=== PATIENT | female | born 2000 | race Caucasian/White ===

== ENCOUNTER 2019-04-28 10:25 | Outpatient (CLI) | payer MEDICAID ==
[~2019-04-28] VITALS: Ht 157.5 cm; Wt 79.7 kg
[2019-04-28 10:29] VITALS: Ht 157.5 cm; Wt 79.7 kg
[2019-04-28 10:41] VITALS: BP 114/64; PULSE 77; RESP 18
--- NOTE | 2019-04-28 11:26 | TRIAGE ---
OB Triage Datetime Report Generated by CPN: 04/28/2019 11:26 Datetime: 04/28/2019 10:38 Assessment Type: Triage Maternal Assessment Level of Consciousness: Keenly Alert, Responsive DTR's/Clonus: DTRs 2+; No Clonus Headache: Denies Blurred Vision: No Respiratory Effort: Unlabored; Regular Rhythm; Equal Expansion Breath Sounds, Left: Clear and Equal Breath Sounds, Right: Clear and Equal Nausea/Vomiting: Denies RUQ Epigastric Pain: Denies Lower Extremities Edema: Bilateral Lower Extremities Degree: 1+ Upper Extremities Edema: None Degree: None Facial Edema: None Fall Risk Assessment History of Falling: (0) No Secondary Diagnosis: (0) No Ambulatory Aid: (0) Bedrest/Nurse Assist IV Therapy: (0) No Gait: (0) Normal/Bedrest/Immobile Mental Status: (0) Oriented to Own Ability Fall Score: 0 Fall Risk Score Definition: No Risk: No action required Datetime: 04/28/2019 10:37 Time of Arrival: 04/28/2019 10:20 EGA: 36.3 Arrived By: Ambulatory Arrived From: Home Chief Complaint: pt. sent for EVAL OF ITCHING Movement: Present Contractions: Denies/Absent Rupture of Membranes: Denies Vaginal Bleeding: None Vaginal Discharge: Denies Recent Sexual Intercouse: Denies Abdominal Trauma: Not Applicable Patient Complaints: None Time Provider Notified: 04/28/2019 11:13 Provider Notified: HADADIAN Initial Plan: NST/BPP Datetime: 04/28/2019 10:36 Labor Evaluation Monitor Mode: External Heart Rate Monitor Mode: External US
--- NOTE | 2019-04-28 13:26 | PN ---
Triage Information Date/Time Reason for visit: Antepartum testing Weeks of Gestation 36 weeks and 3 days /Para 1 Diabetes: none Hypertention: none Objective Vital Signs Date Temp Pulse Resp B/P (MAP) Pulse Ox O2 O2 Flow FiO2 Time Delivery Rate 04/28/19 97.5 77 18 114/64 Room Air 10:41 (81) Heart Rate: 130's Contractions: None Results/Medications Imaging Results There is a single live intrauterine gestation. Cardiac activity is present with 137 beats per minute. There is a vertex presentation. The placenta is posterior. There is no evidence of placental abruption. DEDRA = 13.5 cm. Biophysical profile: movement 2/2 tone 2/2. breathing 2/2 DEDRA 2/2 Total 06/24 RPTAT: AA . IMPRESSION: Normal biophysical profile. Disposition: Discharge Assessment/Plan 18 years old 1 with single intrauterine at 36 weeks and 3 days complaining of generalized itching. She denies itching on palms and soles. She states good movement. She denies nausea, vomiting, shortness of breath, chest pain, headache, visual changes, vaginal bleeding or LOF. -FHR: No sign of metabolic acidosis- Category I. Initially she had one variable deceleration for 10 seconds. Prolonged monitoring for more than 2 hours with category 1 -Contractions: None -Total bile acid ordered yesterday result is pending, CMP is within normal limits. -Ultrasound performed: Normal DEDRA, BPP 8 out of 8 -Scheduled for repeat NST in 3 days -Symptoms and sign of labor, preeclampsia, kick count discussed with patient, she voiced understanding. All of her questions answered. -Patient was discharged home in stable condition with the appropriate discharge instructions provided. I would like patient to have close follow-up with her primary physician or outpatient clinic in 1-2 days or return to triage for worsening symptoms or any other urgent concerns. SABRINA CALHOUN Apr 28, 2019 13:26
== END 2019-04-28 13:05 | disposition home or self-care (01) ==
LOC: OBT 10:25 → L-D 10:26 → OBT 13:05
PROVIDERS: ATTEND Obstetrics & Gynecology
DX: O26.893 Other specified pregnancy related conditions, third trimester (principal); L29.9 Pruritus, unspecified; Z3A.36 36 weeks gestation of pregnancy
CPT/HCPCS: 76818; Z7500; G0463

== ENCOUNTER 2019-05-02 17:50 | Inpatient (IN) | payer MEDICAID ==
[~2019-05-02] VITALS: Ht 157.5 cm; Wt 80.4 kg
[2019-05-02 18:17] VITALS: Ht 157.5 cm; Wt 80.4 kg
[2019-05-02 18:18] VITALS: BP 123/79; PULSE 65
[2019-05-02] MEDS ORDERED: PNV11TAB PO (18:19)
--- NOTE | 2019-05-02 18:30 | HP ---
Date/Time of Note Date/Time of Note DATE: 05/02/19 TIME: 18:28 OB - History Hx of Present Free Text/Dictation 37+wks suspected cholestasis of : 1 Para: 0 Care: Good Care Ultrasounds: Normal mid trimester US Obstetrical Complications: None Medical Complications: None Past Family/Social History * Past Medical, Surgical, Family and Obstetric Histories reviewed from chart. OB Admission Exam Vital Signs Vital Signs Vital Signs Date Temp Pulse Resp B/P (MAP) Pulse Ox O2 O2 Flow FiO2 Time Delivery Rate 05/02/19 98.1 65 123/79 18:18 (94) Physical Exam Abdomen: WNL Extremities: Normal Cervical Dilatation: Fingertip Effacement: 50% Station: -1 Membranes: Intact Heart Rate: 140's Accelerations: Accelerations Present Decelerations: No Decelerations Varibility: Moderate Contractions on Admission: None OB Assessment/Plan Reason for admission: observation Other Assessment: PMH deneis PSH Denies Plan: Expectant Management Other plan: Observation PIH panel F/u on Bile acids results from the clinic tomorrow morning and consider delivery if she is a case of Cholestasis of JAMIA ORTEGA M.D. May 02, 2019 18:30
[2019-05-03] MEDS ORDERED: URSODIOL 300 MG CAP PO ONE (00:30)
[2019-05-03] MEDS ORDERED: DIPHENHYDRAMINE 25 MG CAP PO ONE (00:30)
[2019-05-03] MEDS: URSODIOL 300 MG CAP PO SCH ×3 (09:00→20:31)
[2019-05-03] MEDS: DIPHENHYDRAMINE 25 MG CAP PO SCH (20:31)
[2019-05-04] MEDS ORDERED: MISOPROSTOL 200 MCG TAB PR PRN (02:00)
[2019-05-04] MEDS ORDERED: IBUPROFEN 600 MG TAB PO PRN (02:00)
[2019-05-04] MEDS ORDERED: DIPHENHYDRAMINE 50 MG INJ IV PRN (02:00)
[2019-05-04] MEDS ORDERED: OXYTOCIN 30 UNITS/LR 500 ML IV PRN (02:00)
[2019-05-04] MEDS ORDERED: OXYTOCIN 30 UNITS/LR 500 ML IV SCH ×2 (02:00)
[2019-05-04] MEDS ORDERED: LIDOCAINE 1% (MPF) 30 ML INJ INJ PRN (02:00)
[2019-05-04] MEDS ORDERED: METHYLERGONOVINE 0.2 MG INJ IM PRN (02:00)
[2019-05-04] MEDS ORDERED: BUTORPHANOL 2 MG INJ IV PRN (02:00)
[2019-05-04] MEDS ORDERED: CARBOPROST 250 MCG INJ IM PRN (02:00)
[2019-05-04] MEDS: LACTATED RINGER'S 1,000 ML IV SCH ×3 (02:33→17:28)
[2019-05-04] MEDS: MISOPROSTOL 50 MCG CAPSULE PO SCH ×4 (02:51→20:54)
[2019-05-04] MEDS ORDERED: MISOPROSTOL 50 MCG CAPSULE PO SCH (05:00)
[2019-05-04] MEDS ORDERED: AMPICILLIN 2 GM/NS (PMX) 100 ML IV ONE (07:30)
[2019-05-04] MEDS ORDERED: HYDROCORTISONE 20 MG TAB PO SCH (09:00)
[2019-05-04] MEDS: URSODIOL 300 MG CAP PO SCH ×3 (10:59→20:54)
[2019-05-04] MEDS: hydrOXYzine HCL 10 MG TAB PO SCH ×3 (13:26→21:00)
[2019-05-04] MEDS: AMPICILLIN 1 GM/NS (PMX) 50 ML IV SCH ×3 (13:26→21:30)
[2019-05-04] MEDS: DIPHENHYDRAMINE 25 MG CAP PO SCH (20:54)
[2019-05-04] MEDS ORDERED: MINERAL OIL LIGHT 10 ML VIAL TOP PRN (23:00)
[2019-05-05] MEDS: AMPICILLIN 1 GM/NS (PMX) 50 ML IV SCH ×6 (01:34→20:54)
[2019-05-05] MEDS: MISOPROSTOL 50 MCG CAPSULE PO PRN ×2 (01:34→05:44)
[2019-05-05] MEDS: LACTATED RINGER'S 1,000 ML IV SCH ×2 (01:36→12:45)
[2019-05-05] MEDS: hydrOXYzine HCL 10 MG TAB PO SCH ×3 (09:06→20:46)
[2019-05-05] MEDS: URSODIOL 300 MG CAP PO SCH ×3 (09:06→20:46)
[2019-05-05] MEDS ORDERED: OXYTOCIN 30 UNITS/LR 500 ML IV SCH (10:30)
[2019-05-05] MEDS: LACTATED RINGER'S 1,000 ML IV PRN ×2 (20:14→23:54)
[2019-05-05] MEDS: DIPHENHYDRAMINE 25 MG CAP PO SCH (21:00)
--- NOTE | 2019-05-06 00:02 | PREAC ---
Date/Time of Note Date/Time of Note DATE: 05/06/19 TIME: 00:01 Anesthesia Eval and Record Evaluation Time Pre-Procedure Interview DATE: 05/06/19 TIME: 00:01 Age 18 Sex female NPO: 8 hrs Preoperative diagnosis iup at 37 weeks Planned procedure labor epidural Past Medical History Past Medical History: Includes Heme: Anemia Surgery & Anesthesia Issues No known issue Meds Anticoagulation: No Beta Casey within 24 hr: No Reason Beta Casey not given: Pt. not on B-Casey Reported Medications [id number] ( 19) 1 Each Tablet, 1 TAB PO DAILY, TAB 05/02/19 Current Medications Ursodiol (Actigall) 300 mg TID PO Last administered on 05/05/19at 20:46; Admin Dose 300 MG; Start 05/03/19 at 09:00 Diphenhydramine HCl (Benadryl) 25 mg HS PO Last administered on 05/04/19at 20:54; Admin Dose 25 MG; Start 05/03/19 at 21:00 Lactated Ringer's 1,000 ml @ 125 mls/hr Q8H IV Last administered on 05/05/19at 12:45; Admin Dose 125 MLS/HR; Start 05/04/19 at 01:43 Butorphanol Tartrate (Stadol) 2 mg Q2H PRN IV .PAIN SCALE 6-10 Last administered on 05/05/19at 20:48; Admin Dose 2 MG; Start 05/04/19 at 02:00 Lidocaine (Xylocaine 1% (Mpf)) 30 ml ONCE PRN INJ .EPISIOTOMY; Start 05/04/19 at 02:00 Oxytocin/Lactated Ringer's 500 ml @ 500 mls/hr ONCE POST IV ; Start 05/04/19 at 02:00 Oxytocin/Lactated Ringer's 500 ml @ 125 mls/hr POST IV ; Start 05/04/19 at 02:00 Ibuprofen (Motrin) 600 mg ONCE PRN PO .PAIN 1-5; Start 05/04/19 at 02:00 Oxytocin/Lactated Ringer's 500 ml @ 0 mls/hr ONCE PRN IV .VAGINAL BLEEDING; Start 05/04/19 at 02:00 Methylergonovine Maleate (Methergine) 0.2 mg ONCE PRN IM .VAGINAL BLEEDING; Start 05/04/19 at 02:00 Carboprost Tromethamine (Hemabate) 250 mcg ONCE PRN IM .VAGINAL BLEEDING; Start 05/04/19 at 02:00 Misoprostol (Cytotec) 1,000 mcg ONCE PRN ND .VAGINAL BLEEDING; Start 05/04/19 at 02:00 Diphenhydramine HCl (Benadryl) 50 mg Q6H PRN IV ITCHING Last administered on 05/04/19at 02:34; Admin Dose 50 MG; Start 05/04/19 at 02:00 Ampicillin 50 ml @ 100 mls/hr Q4H IV Last administered on 05/05/19at 20:54; Admin Dose 100 MLS/HR; Start 05/04/19 at 11:30 Hydroxyzine HCl (Atarax) 10 mg TID PO Last administered on 05/05/19at 20:46; Admin Dose 10 MG; Start 05/04/19 at 10:00 Lactated Ringer's 1,000 ml @ 2,000 mls/hr Q30M PRN IV .ANESTHESIA Last administered on 05/05/19at 23:54; Admin Dose 2,000 MLS/HR; Start 05/04/19 at 22:56 Oxytocin/Lactated Ringer's 500 ml @ 0 mls/hr Q0M IV Last administered on 05/05/19at 10:45; Admin Dose 0 MLS/HR; Start 05/05/19 at 10:30 Meds reviewed: Yes Allergies Coded Allergies: No Known Allergy (Unverified , 04/28/19) Allergies Reviewed: Yes Labs/Studies Labs Reviewed: Reviewed by anesthesiologist Result Diagram: 05/04/19 0233 05/04/19 0032 test: Positive Pre-procedure Exam Last vitals Vital Signs Date Temp Pulse Resp B/P (MAP) Pulse Ox O2 O2 Flow FiO2 Time Delivery Rate 05/02/19 98.1 65 123/79 18:18 (94) Airway: Adequate mouth opening, Adequate thyromental dist Mallampati: Mallampati II Teeth: Normal Lung: Normal Heart: Normal ASA Physical Status ASA physical status: 2 Emergency: None Planned Anesthetic Neuraxial: Epidural Planned Pain Management Parenteral pain med Pre-operative Attestations Prior to commencing anesthesia and surgery, the patient was re-evaluated, there was verification of: *The patient's identity *The results of appropriate recent lab work and preoperative vital signs *The above evaluation not changing prior to induction *Anesthetic plan, risk benefits, alternative and complications discussed with patient/family; questions answered; patient/family understands, accepts and wishes to proceed. ROGER TATE May 06, 2019 00:02
[2019-05-06] MEDS ORDERED: FENTAnyl 2MCG/ML-ROPIV 0.2% 100 ML ONE (00:09)
[2019-05-06] MEDS ORDERED: FENTAnyl 2MCG/ML-ROPIV 0.2% 100 ML BAG EPI SCH (00:30)
[2019-05-06] MEDS ORDERED: NALOXONE (0.4 MG/ML) INJ IV PRN (00:30)
[2019-05-06] MEDS ORDERED: DIPHENHYDRAMINE 50 MG INJ IV PRN (00:30)
[2019-05-06] MEDS ORDERED: ONDANSETRON 4 MG INJ IV PRN (00:30)
[2019-05-06] MEDS: AMPICILLIN 1 GM/NS (PMX) 50 ML IV SCH ×2 (01:16→06:02)
[2019-05-06] MEDS ORDERED: MINERAL OIL LIGHT 10 ML VIAL TOP PRN (06:30)
[2019-05-06] MEDS ORDERED: OXYTOCIN 30 UNITS/LR 500 ML IV SCH (11:59)
[2019-05-06 12:00] VITALS: BP 137/82; PULSE 70; RESP 20
[2019-05-06] MEDS ORDERED: LANOLIN HPA 1 PKT TOP PRN (12:00)
[2019-05-06] MEDS ORDERED: WITCH HAZEL/GLYCERIN PAD PR PRN (12:00)
[2019-05-06] MEDS ORDERED: METHYLERGONOVINE 0.2 MG INJ IM PRN (12:00)
[2019-05-06] MEDS ORDERED: OXYTOCIN 30 UNITS/LR 500 ML IV PRN (12:00)
[2019-05-06] MEDS ORDERED: HYDROCODONE/APAP (5/325) TAB PO PRN ×2 (12:00)
[2019-05-06] MEDS ORDERED: BENZOCAINE 20% 56 ML SPRAY TOP PRN (12:00)
[2019-05-06] MEDS ORDERED: MISOPROSTOL 200 MCG TAB PR PRN (12:00)
[2019-05-06] MEDS ORDERED: NACL 0.9% 3 ML SYG IV SCH (12:00)
[2019-05-06] MEDS ORDERED: CARBOPROST 250 MCG INJ IM PRN (12:00)
[2019-05-06] MEDS ORDERED: METHYLERGONOVINE 0.2 MG TAB PO PRN (12:00)
[2019-05-06] MEDS ORDERED: DIBUCAINE 1% 30 GM OINT TOP PRN (12:00)
[2019-05-06 13:00] VITALS: BP 124/80; PULSE 74; RESP 18
[2019-05-06] MEDS: IBUPROFEN 600 MG TAB PO SCH ×2 (13:24→18:11)
[2019-05-06 14:00] VITALS: BP 122/82; PULSE 76; RESP 16
--- NOTE | 2019-05-06 14:59 | LDN ---
Date/Time of Note Date/Time of Note DATE: 05/06/19 TIME: 14:56 Delivery Summary 05/06/2019 Placenta Delivered: Spontaneously Meconium: none Episiotomy: No Indication for episiotomy N/A Perineal laceration: 1 Laceration repair: first degree perineal laceration noted , repaired using 3-0 chromic Anesthesia type: Epidural Estimated blood loss: 300 Sponge & Needle done & correct: Yes All needle counts correct: Yes Any foreign bodies felt in the: No Infant Delivery Information Sex Sex: male Apgars 1 Minute: 8 5 Minute: 9 Suctioning Nose & mouth suctioned at yan: Yes Delee suction performed: Yes Umbilical Cord Umbilical cord with: 3 Vessels Cord presentations: no nuchal cord Cord Blood was obtained: Yes SHARRI ESTRADA MD May 06, 2019 14:59
[2019-05-06 15:30] VITALS: BP 117/66; PULSE 87; RESP 16
[2019-05-06 20:15] VITALS: BP 108/60; PULSE 74; RESP 20
[2019-05-07] VITALS: BP 121/70; PULSE 73; RESP 18
[2019-05-07] MEDS: IBUPROFEN 600 MG TAB PO SCH ×5 (00:01→23:45)
[2019-05-07 04:00] VITALS: BP 119/70; PULSE 75; RESP 18
[2019-05-07 08:00] VITALS: BP 105/66; PULSE 64; RESP 16
[2019-05-07 08:30] VITALS: BP 105/66; PULSE 64; RESP 18
--- NOTE | 2019-05-07 11:26 | PAC ---
Date/Time of Note Date/Time of Note DATE: 05/07/19 TIME: 11:25 Post-Anesthesia Notes Post-Anesthesia Note Last documented vital signs Vital Signs Date Temp Pulse Resp B/P (MAP) Pulse Ox O2 O2 Flow FiO2 Time Delivery Rate 05/07/19 98.0 64 18 105/66 Room Air 08:30 (79) Activity: WNL Respiratory function: WNL Cardiovascular function: WNL Mental status: Baseline Pain reasonably controlled: Yes Hydration appropriate: Yes Nausea/Vomiting absent: Yes ROGER TATE May 07, 2019 11:25
--- NOTE | 2019-05-07 13:28 | QN ---
Documentation Comment itching better no b.m yet vss afebrile fundus firm lochia min calf neg for tenderness A stable s/p #1 P discharge home in am ALFRED AVENDAÑO MD May 07, 2019 13:28
[2019-05-07 16:20] VITALS: BP 125/78; PULSE 85; RESP 18
[2019-05-07 20:00] VITALS: BP 123/74; PULSE 57; RESP 18
[2019-05-08 04:00] VITALS: BP 134/68; PULSE 58; RESP 19
[2019-05-08] MEDS: IBUPROFEN 600 MG TAB PO SCH ×2 (05:36→12:00)
--- NOTE | 2019-05-08 08:08 | PD.PPDC ---
TEXTILE DESIGNER Discharge Instruction Condition [id number] Patient Condition: [id number] Good Diet Ngrty1Nu Diet: Nukve5l Resume Regular Diet Activity/Restrictions Ciaeo1Gg Activity: [id number] Normal Activity May Shower [id number] Restrictions: [id number] No Sexual Activity Nothing in the Vagina No Stronach No Tampons, douche Follow-up Follow-up with Physician: 6, Week/Weeks Return to clinic for Iqflm6Ch SOLE BLACKER Instructions: Basya0l Fever greater than 101 Chills Worsening abdominal pain Excessive Vaginal Bleeding Ccofe5We OB Instructions: [id number] Breast Tenderness Depression HANNA LARA MD May 08, 2019 08:08
--- NOTE | 2019-05-08 08:11 | DS ---
Date/Time of Note Date/Time of Note DATE: 05/08/19 TIME: 08:10 Obstetrical Discharge Record Final Diagnosis Final Diagnosis: Term delivered Vaginal Delivery Obstetrical Delivery: Spontaneous, Laceration, Repaired Complications Augmentation: Yes Induction: Yes Condition on Discharge Physical Assessment Last Vitals: T=97.9 BP 134/68 Voiding: Yes Bowel Movement: Yes Breast: Soft, non-tender Fundus: Firm Calf Tenderness: No Patient Condition: Good HANNA LARA MD May 08, 2019 08:11
[2019-05-08 08:30] VITALS: BP 133/75; PULSE 66; RESP 18
[2019-05-08] MEDS ORDERED: MEASLES,MUMPS,RUBELLA VACCINE INJ SC* ONE (08:30)
[2019-05-08] MEDS ORDERED: DIPHTH/TET/ACEL PERTUSS (ADULT) 0.5 ML VIAL IM* ONE (09:00)
--- NOTE | 2019-05-09 13:17 | DELSUM ---
Delivery Summary A-C Datetime Report Generated by CPN: 05/09/2019 13:17 DELIVERY PERSONNEL Managing Manager: Hafsa Kaufman MATERNAL INFORMATION Delivery Anesthesia: Epidural Medications in Delivery: LR with 30 Units Pitocin Delivery QBL (ml): 300 Placenta Cultured: No Maternal Complications: Other Other Maternal Complications: Cholestasis LABOR SUMMARY EDC: 05/23/2019 00:00 No. Babies in Womb: 1 Attempted: No Labor Anesthesia: Epidural LABOR INFORMATION Reason for Induction: Other Reason for Induction- Other: CHOLESTASIS Onset of Labor: 05/05/2019 10:00 Complete Dilatation: 05/06/2019 06:38 Cervical Ripening Agents: Cytotec @ 50 mcg Oxytocin: Induction Group B Beta Strep: Positive Antibiotics # of Doses: 12 Antibiotics Time of Last Dose: 05/06/2019 06:02 Steroids Given: None Reason Steroids Not Administered: Not Applicable MEMBRANES Membranes Rupture Method: Spontaneous Rupture of Membranes: 05/05/2019 18:15 Length of Rupture (hr): 14.72 Amniotic Fluid Color: Clear Amniotic Fluid Amount: Moderate Amniotic Fluid Odor: None STAGES OF LABOR Stage 1 hr: 20 Stage 1 min: 38 Stage 2 hr: 2 Stage 2 min: 20 Stage 3 hr: 0 Stage 3 min: 3 Total Time in Labor hr: 23 Total Time in Labor min: 1 VAGINAL DELIVERY Episiotomy: None Laceration Extension: First Degree Laceration Type: Perineal Other Laceration: left labia Laceration Repair: Yes Initial Vag Sponge Count: 10 Final Vag Sponge Count: 10 Initial Vag Sharps Count: 1 Final Vag Sharps Count: 2 Sponge Count Correct: Yes; Vaginal Sweep Performed Sharps Count Correct: Yes BABY A INFORMATION Delivery Date/Time: 05/06/2019 08:58 Method of Delivery: Vaginal Born in Route : No : N/A Forceps: N/A Vacuum Extraction: N/A Shoulder Dystocia : N/A SHOULDER DYSTOCIA BABY A Delivery Date/Time: 05/06/2019 08:58 PRESENTATION/POSITION BABY A Presentation: Cephalic Cephalic Presentation: Vertex Vertex Position: Left Occipital Anterior Breech Presentation: N/A PLACENTA INFORMATION BABY A Placenta Delivery Time : 05/06/2019 09:01 Placenta Method of Delivery: Spontaneous Placenta Status: Delivered SCORES BABY A Heart Rate 1 min: >100 bpm Resp Effort 1 min: Good Cry Reflex Irritability 1 min: Cough/Sneeze/Pulls Away Muscle Tone 1 min: Active Motion Color 1 min: Blue/Pale Resuscitation Effort 1 min: Tactile Stimulation SCORE 1 MIN: 8 Heart Rate 5 min: >100 bpm Resp Effort 5 min: Good Cry Reflex Irritability 5 min: Cough/Sneeze/Pulls Away Muscle Tone 5 min: Active Motion Color 5 min: Body [place], Extremit Blue Resuscitation Effort 5 min: Tactile Stimulation SCORE 5 MIN: 9 INFORMATION BABY A Gestational Age at Delivery: 37.3 Gestational Status: Early Term- 37- 38.6 Weeks Outcome : Liveborn Infant Condition : Stable Sex: Male IDENTIFICATION/MEDS BABY A ID Band Number: [id number] ID Band Location: Right Leg; Left Arm Sensor Applied: Yes Sensor Number: [id number] Sensor Location : Cord Clamp Vitamin K Given : Not Given Erythromycin Given: Not Given WEIGHT/LENGTH BABY A Infant Birthweight (gm): 3155 Weight (lb): 6 Weight (oz): 15 Infant Length (in): 19.50 Length (cm): 49.53 CORD INFORMATION BABY A No. Cord Vessels: 3 Nuchal Cord : N/A Cord Blood Taken: Yes Suction: Mouth; Nose ASSESSMENT BABY A Complications: Extended Tachycardi; Multiple Variable Decels Physical Findings at Delivery: Caput Succedaneum; Molding of the Head Respirations: Appears Normal Yard Inspector/ALS Called : No Care By: Buzz Frank Transferred To: Remains with Mother
== END 2019-05-08 12:55 | disposition home or self-care (01) | DRG 807 ==
LOC: OBT 17:50 → L-D 17:52 → OBT 18:40 → L-D 05-04 16:11 → PP1 05-06 12:25
PROVIDERS: ADMIT Obstetrics & Gynecology; ATTEND Obstetrics & Gynecology
PROC: 4A1HXCZ Monitoring of Products of Conception, Cardiac Rate, External Approach (ICD-10-PCS; 2019-05-02)
PROC: 10E0XZZ Delivery of Products of Conception, External Approach (ICD-10-PCS; principal; 2019-05-06)
PROC: 0HQ9XZZ Repair Perineum Skin, External Approach (ICD-10-PCS; 2019-05-06)
PROC: 3E0234Z Introduction of Serum, Toxoid and Vaccine into Muscle, Percutaneous Approach (ICD-10-PCS; 2019-05-08)
DX: O99.824 Streptococcus B carrier state complicating childbirth (principal); Z37.0 Single live birth; O70.0 First degree perineal laceration during delivery; Z3A.37 37 weeks gestation of pregnancy; Z23 Encounter for immunization
CPT/HCPCS: 62322; 76818; 80053; 80307; 81001; 82565; 82575; 84156; 84560; 85025; 85384; 85610; 85730; 86592; 86850; 86900; 86901; 87340; 99464; G0463; J0290; J0595; J1200; J2590; J3010; J7120